=== PATIENT | female | born 1980 | race Caucasian/White ===

== ENCOUNTER 2017-05-21 14:31 | Emergency (ER) | payer OTHER ==
[~2017-05-21] VITALS: Ht 165.1 cm; Wt 111.4 kg
--- NOTE | ~2017-05-21 | CR126 ---
[facility] A Service of [facility] RADIOLOGY TEXT RESULTS PATIENT: WENDY SCHMIDT LOCATION: SED : [birth year] UNIT #: [id number] AGE: [address]: CHARU MONTAÑO SEX: F ORDER DR: [id number] [place] [id number] E MR#: [id number] Acc #: [id number] NAME: WENDY SCHMITD : 1980 SEX: F STUDY DATE/TIME: 05/21/2017 15:21 UNIT: SED ROOM: STUDY DESCRIPTION: CR Foot Complete Min 3 View Lt Ordering Physician: [facility] Primary Care Physician: Demetrius Medina M.D. MEDICAL IMAGING REPORT This report is preliminary unless electronic signature is present. EXAM Left foot 3 views HISTORY Left foot pain and swelling started today. Frozen meat fell on top of foot and ankle. TECHNIQUE 3 views left foot are reviewed. COMPARISON STUDIES 03/13/2015. FINDINGS There is soft tissue swelling dorsum of the foot distally. There is no radiopaque foreign body. There is no acute fracture or dislocation suspected. IMPRESSION Soft tissue swelling consistent with history but otherwise, no acute fracture, dislocation or radiopaque foreign body is suspected. Dictated by... Martha Madison M.D. THIS IS AN ELECTRONICALLY VERIFIED REPORT Martha Madison M.D. at 05/22/2017 7:23 AM SAC/pcl TD: 05/21/2017 22:49 JOB #: [id number] [facility] A Service of [facility] RADIOLOGY TEXT RESULTS PATIENT: WENDY SCHMIDT LOCATION: SED : 80 UNIT #: [id number] AGE: [address]: CHARU MONTAÑO SEX: F ORDER DR: MEDICAL IMAGING REPORT Page 1 of 1
--- NOTE | ~2017-05-21 | CR20 ---
[facility]. [facility] A Service of [facility] & [facility] RADIOLOGY TEXT RESULTS PATIENT: WENDY SCHMIDT LOCATION: SED : [birth year] UNIT #: [id number] AGE: [address]: CHARU MONTAÑO SEX: F ORDER DR: [id number] [place] [id number] E MR#: [id number] Acc #: [id number] NAME: WENDY SCHMIDT : 1980 SEX: F STUDY DATE/TIME: 05/21/2017 15:21 UNIT: SED ROOM: STUDY DESCRIPTION: CR Ankle Min 3 Views Lt Ordering Physician: [facility] Primary Care Physician: Demetrius Medina M.D. MEDICAL IMAGING REPORT This report is preliminary unless electronic signature is present. EXAM Left ankle HISTORY Left ankle pain and swelling after frozen meat fell onto top of foot and ankle. COMPARISON STUDIES 2013. FINDINGS Three views of the left ankle are reviewed. There is no acute fracture, dislocation or radiopaque foreign body. IMPRESSION Negative. Dictated by... Martha Madison M.D. THIS IS AN ELECTRONICALLY VERIFIED REPORT Martha Madison M.D. at 05/22/2017 7:23 AM SAC/pcl TD: 05/21/2017 22:50 JOB #: [id number] MEDICAL IMAGING REPORT Page 1 of 1
[~2017-05-21 14:31] MED LIST: ADVAIR 2501 DISK W/D PO; ALBUTEROL17 G1 INH; ALBUTEROL17 GM; ALBUTEROL17 GM INH; ALBUTEROL20 ml INH; AMOXICILLIN875 MG PO; BACLOFEN10 MG PO; BACTRIM DS TABL1 TA2 PO; CHOLESTEROL MED PO; CIPRO PO; DICLOFENAC PO; DOXYCYCLINE MO100 MG PO; EC-NAPROSYN500 MG PO; FAMOTIDINE PO; FLEXERIL PO; FLEXERIL10 M1 PO; HYDROCHLOROTHIA25 MG PO; IBUPROFEN PO; IBUPROFEN800 MG PO; KEFLEX500 MG PO; LEVOTHROID100 MC1 PO; MACROBID 100 M100 MG PO; MEDROL DOSEPAK4 MG PO; MEDROL4 MG/DOSE- PO; MUCINEX DM1 TAB.SR . PO; NO MEDICATIONS; PHENERGAN DM PO; PHENERGAN PO; PREDNISONE PO; RONDEC-DM SYRU120 ML PO; SUDAFED PO; TESSALON PERLE100 M1 PO; ULTRAM PO; VOLTAREN75 MG PO; ZITHROMAX PO; ZITHROMAX1 G/PKT PO; ZOCOR PO; ZYRTEC10 M2 PO
[2017-05-21] MEDS ORDERED: CAPOZIDE (14:35)
== END 2017-05-21 16:41 | disposition home or self-care (01) ==
LOC: SED 14:31
DX: S90.02XA Contusion of left ankle, initial encounter (principal); S90.32XA Contusion of left foot, initial encounter; J45.909 Unspecified asthma, uncomplicated; F17.220 Nicotine dependence, chewing tobacco, uncomplicated; W22.8XXA Striking against or struck by other objects, initial encounter; Y92.009 Unspecified place in unspecified non-institutional (private) residence as the place of occurrence of the external cause
CPT/HCPCS: 29540; 73610; 73630; 99283